=== PATIENT | female | born 1970 ===

== ENCOUNTER 2018-09-03 20:05 | Emergency (ER) | payer OTHER ==
[2018-09-03 20:29] VITALS: TEMP 98.1
--- NOTE | 2018-09-03 20:41 | ED PDOC ---
Arrival/HPI - General Chief Complaint: Respiratory Distress Time Seen by Provider: 09/03/18 20:34 Historian: Patient - History of Present Illness Narrative History of Present Illness (Text): 09/03/18 20:41 Milvia Evans is a 47 year old female, whose past medical history includes asthma, seizures, and lupus, who presents to the Emergency department complaining of shortness of breath and wheezing today. Patient states symptoms are consistent with previous episodes of asthma. Patient notes she recently went to an Urgent Care Clinic and was given an inhaler, nebulizer treatments, and Prednisone, but denies any significant improvement. Patient denies any chest pain, fever, abdominal pain, vomiting, headache, dizziness, or any other complaints. No PMD Symptom Onset: Gradual Symptom Course: Unchanged Activities at Onset: Light Context: Home Past Medical History - Provider Review Nursing Documentation Reviewed: Yes - Infectious Disease Hx of Infectious Diseases: None - Pulmonary Hx Asthma: Yes Hx Pulmonary Edema: Yes Other/Comment: ABPA of lungs - Neurological Hx Seizures: Yes - Renal Other/Comment: R kidney removed. - Gastrointestinal Other/Comment: stomach polyps - Psychiatric Hx Substance Use: No - Surgical History Other/Comment: paraguard IUD - Anesthesia Hx Anesthesia: Yes Family/Social History - Physician Review Nursing Documentation Reviewed: Yes Family/Social History: Unknown Family HX Smoking Status: Never Smoked Hx Alcohol Use: No Hx Substance Use: No Allergies/Home Meds Allergies/Adverse Reactions: Allergies benzonatate Adverse Reaction (Verified 09/03/18 20:30) ITCHING phenytoin [From Dilantin] Adverse Reaction (Verified 09/03/18 20:30) ITCHING Review of Systems - Physician Review All systems were reviewed & negative as marked: Yes - Review of Systems Constitutional: Normal. absent: Fevers Eyes: Normal ENT: Normal Respiratory: SOB, Wheezing Cardiovascular: Normal. absent: Chest Pain Gastrointestinal: Normal. absent: Abdominal Pain, Diarrhea, Nausea, Vomiting Genitourinary Female: Normal. absent: Dysuria, Hematuria, Urine Output Changes Musculoskeletal: Normal. absent: Back Pain, Neck Pain Skin: Normal. absent: Rash Neurological: Normal. absent: Headache, Dizziness Endocrine: Normal Hemo/Lymphatic: Normal Psychiatric: Normal Physical Exam Vital Signs Reviewed: Yes Vital Signs Temp Pulse Resp BP Pulse Ox 09/03/18 20:29 98.1 F 94 H 18 133/72 99 Temperature: Afebrile Blood Pressure: Normal Pulse: Regular Respiratory Rate: Normal Appearance: Positive for: Well-Appearing, Non-Toxic, Comfortable Pain Distress: None Mental Status: Positive for: Alert and Oriented X 3 - Systems Exam Head: Present: Atraumatic, Normocephalic Pupils: Present: PERRL Extroacular Muscles: Present: EOMI Conjunctiva: Present: Normal Mouth: Present: Moist Mucous Membranes Neck: Present: Normal Range of Motion Respiratory/Chest: Present: Wheezes (Wheezing bilaterally). No: Respiratory Distress, Accessory Muscle Use Cardiovascular: Present: Regular Rate and Rhythm, Normal S1, S2. No: Murmurs Abdomen: No: Tenderness, Distention, Peritoneal Signs Back: Present: Normal Inspection Upper Extremity: Present: Normal Inspection. No: Cyanosis, Edema Lower Extremity: Present: Normal Inspection. No: Edema Neurological: Present: GCS=15, CN II-XII Intact, Speech Normal Skin: Present: Warm, Dry, Normal Color. No: Rashes Psychiatric: Present: Alert, Oriented x 3, Normal Insight, Normal Concentration Medical Decision Making ED Course and Treatment: 09/03/18 20:41 Impression: 47 year old female complaining of wheezing and shortness of breath. Plan: -- Duoneb -- Solu-medrol -- Reassess and disposition Progress Notes: 09/04/18 00:19 On re-evaluation, patient feels better and is in no acute distress. Patient in agreement with plan to be discharged home. Patient is stable for discharge. Patient was instructed to follow up with physician or return if symptoms worsen or new concerning symptoms arise. - Scribe Statement The provider has reviewed the documentation as recorded by the Esther Sanchez Provider Scribe Attestation: All medical record entries made by the Scribamee were at my direction and person ally dictated by me. I have reviewed the chart and agree that the record accurately reflects my personal performance of the history, physical exam, medical decision making, and the department course for this patient. I have also personally directed, reviewed, and agree with the discharge instructions and disposition. Disposition/Present on Arrival - Present on Arrival Any Indicators Present on Arrival: No History of DVT/PE: No History of Uncontrolled Diabetes: No Urinary Catheter: No History of Decub. Ulcer: No History Surgical Site Infection Following: None - Disposition Have Diagnosis and Disposition been Completed?: Yes Diagnosis: Asthma exacerbation Disposition: HOME/ ROUTINE Disposition Time: 00:20 Patient Plan: Discharge Patient Problems: Current Active Problems Problem Status Onset Asthma exacerbation Acute Condition: GOOD Discharge Instructions (ExitCare): Asthma, Adult (DC) Additional Instructions: Take meds as prescribed/follow up with your doctor this week Prescriptions: predniSONE [Prednisone] 60 mg PO DAILY #15 tab Albuterol HFA [Ventolin HFA 90 mcg/actuation (8 g)] 2 puff IH [id number] PRN #1 puff PRN Reason: Wheezing Forms: [employer] ([place])
[2018-09-03] MEDS ORDERED: Albuterol-Ipratrop 3 mg / 0.5 (3 ml) UD IH STA (20:43)
[2018-09-04 01:00] VITALS: RESP 17
[2018-09-04 01:02] VITALS: BP 120/72; PULSE 87; O2SAT 99
== END 2018-09-04 01:01 | disposition home or self-care (01) ==
LOC: ED 20:05
DX: J45.901 Unspecified asthma with (acute) exacerbation (principal)
CPT/HCPCS: 96374; 99284; J2930